=== PATIENT | female | born 1950 | race Caucasian/White ===

== ENCOUNTER → 2020-06-05 | Outpatient (CLI) | payer OTHER ==
[~2020-06-05] MED LIST: COLACE100 MG PO; CYANOCOBAL1000 MCG/1 INJ; ESTRADIOL42.5 GM TOP; FLAGYL500 MG PO; FLONASE ALLER15.8 ML; LATANOPROST2.5 ML OP; LEVAQUIN500 MG PO; SYNTHROID175 MCG PO; VALIUM 5 MG TAB5 MG PO; VENTOLIN HFA 66.7 GM INH; VITAMIN D21250 MCG PO
[2020-06-05 16:18] LABS: HEMOGLOBIN 13.3 gm/dl (12.3-15.3); RED BLOOD COUNT 4.35 M/UL (4.00-5.10); WHITE BLOOD COUNT 10.9 K/UL (4.5-11.0)
[2020-06-05 16:42] LABS: BUN/CREATININE RATIO 30 (0-10)
[2020-06-06 09:13] LABS: THYROXINE (T4) 9.1 ug/dL (4.5-12.0)
[2020-06-06 11:13] LABS: RHEUMATOID ARTHRITIS FACTOR 10.5 IU/mL (0.0-13.9)
[2020-06-06 14:13] LABS: CHOLESTEROL, TOTAL 189 mg/dL (100-199); HDL SIZE 8.9 nm (>=9.2); HDL-C 38 mg/dL (>39); HDL-P (TOTAL) 35.2 umol/L (>=30.5); LARGE HDL-P 4.4 umol/L (>=4.8); LARGE VLDL-P 22.5 nmol/L (<=2.7); LDL SIZE 20.2 nm (>20.5); LDL SIZE 20.2 nm (>=20.8); LDL-C 97 mg/dL (0-99); LDL-P 1173 nmol/L (<1000); LP-IR SCORE 90 (<=45); SMALL LDL-P 625 nmol/L (<=527); TRIGLYCERIDES 319 mg/dL (0-149)
== END ==
LOC: LAB 15:14
PROVIDERS: Family Medicine
DX: J30.2 Other seasonal allergic rhinitis (principal); M25.579 Pain in unspecified ankle and joints of unspecified foot; M54.2 Cervicalgia; M54.6 Pain in thoracic spine; E03.9 Hypothyroidism, unspecified; G47.00 Insomnia, unspecified; M25.569 Pain in unspecified knee; M99.06 Segmental and somatic dysfunction of lower extremity; E55.9 Vitamin D deficiency, unspecified; E83.42 Hypomagnesemia; E16.2 Hypoglycemia, unspecified; R73.9 Hyperglycemia, unspecified; I10 Essential (primary) hypertension; R53.83 Other fatigue; E78.2 Mixed hyperlipidemia; E53.8 Deficiency of other specified B group vitamins
CPT/HCPCS: 36415; 80053; 80061; 82607; 82746; 83036; 84436; 84439; 84443; 84550; 85025; 85652; 86038; 86140; 86431

== ENCOUNTER 2021-01-04 09:59 | Emergency (ER) | payer OTHER ==
[2021-01-04 12:25] LABS: HEMOGLOBIN 14.2 gm/dl (12.3-15.3); RED BLOOD COUNT 4.64 M/UL (4.00-5.10); WHITE BLOOD COUNT 14.6 K/UL (4.5-11.0)
[2021-01-04 13:03] LABS: BUN/CREATININE RATIO 30 (0-10)
[2021-01-04] MEDS ORDERED: MECLIZINE HCL25 M1 PO (17:38)
== END 2021-01-04 18:00 | disposition left against medical advice (07) ==
LOC: ER1 09:59
PROVIDERS: Physician Assistant
DX: R42 Dizziness and giddiness (principal); R11.2 Nausea with vomiting, unspecified; I10 Essential (primary) hypertension; E03.9 Hypothyroidism, unspecified; Z88.8 Allergy status to other drugs, medicaments and biological substances; Z79.899 Other long term (current) drug therapy
CPT/HCPCS: 70450; 71045; 80053; 82550; 82553; 83874; 84484; 85025; 93005; 99285; J2550; Q9967